=== PATIENT | female | born 1990 | race Caucasian/White ===

== ENCOUNTER 2017-10-06 17:13 | Emergency (ER) | payer OTHER ==
[2017-10-06 17:21] VITALS: BP 125/74
[2017-10-06] MEDS ORDERED: IBUPROFEN 600 MG TABLET PO ONE (18:28)
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
== END 2017-10-06 18:36 | disposition home or self-care (01) ==
LOC: ER 17:13
DX: S09.90XA Unspecified injury of head, initial encounter (principal); M54.5 Low back pain; M54.2 Cervicalgia; R51 Headache; V49.40XA Driver injured in collision with unspecified motor vehicles in traffic accident, initial encounter
CPT/HCPCS: 99283